=== PATIENT | male | born 1990 | race Caucasian/White ===

== ENCOUNTER 2017-09-12 15:32 | Emergency (ER) | payer SELFPAY ==
[2017-09-12] MEDS ORDERED: NORMAL SALINE 1,000 ML IV ONE (17:19)
[2017-09-12] MEDS ORDERED: ONDANSETRON HCL/PF 2 MG/ML VIAL IV ONE (17:19)
--- NOTE | 2017-09-12 17:19 | ERNOTE ---
[facility] Date of Service: 09/12/17 Presenting Symptoms: dental pain Time Seen by Provider: 09/12/17 16:59 Source: patient, family, RN notes reviewed Exam Limitations: no limitations - Immun/Allergies/Home Medications Immunizations: IMMUNIZATION HX Immunizations Up to Date Yes History of Influenza Vaccine No Hx Pneumococcal Vaccination No Allergies/Adverse Reactions: Allergies Allergy/AdvReac Type Severity Reaction Status Date / Time No Known Allergies Allergy Unverified 09/12/17 16:30 Home Medications: HOME MEDICATIONS Buprenorphine HCl/Naloxone HCl [Suboxone 8 mg-2 mg Sl Film] 8 mg SL HS 09/12/17 [Last Taken Unknown] Dextroamphetamine/Amphetamine [Adderall 30 mg Tablet] 30 mg PO TID 09/12/17 [ Last Taken Unknown] Penicillin V Potassium [Pen-Vee K] 500 mg PO Q8H #30 tab 09/12/17 [Last Taken Unknown] clonazePAM [Klonopin] 1 mg PO PRN 09/12/17 [Last Taken Unknown] - History of Present Illness Narrative: 27 year old male presents to the ED with his girlfriend for dental pain and scrotal pain. He states that he has had bad teeth for some time. He began having pain about 36 hours ago and noticed swelling in his jaw today on the left lower side. He is also having chills and nausea. His scrotal pain has been intermittent for several weeks but was worse last night. It is not as bad today. He does a lot of heavy lifting at work. He denies dysuria. The pain is localized to the right side of the scrotum. Prearrival Treatment: Present: no prearrival treatment Prior Treament: Denies: recently seen, similar symptoms before Review of Systems - Review of Systems Constitutional: Present: fever, chills, malaise EYE: Absent: eye pain, vision changes ENT: Absent: ear pain, sore throat Respiratory: Absent: shortness of breath, cough Cardiology: Present: no symptoms reported Gastrointestinal/Abdominal: Present: nausea. Absent: vomiting, diarrhea, abdominal pain Genitourinary: Present: pain. Absent: dysuria, hematuria, decreased urinary output, discharge Musculoskeletal: Absent: back pain, joint pain Skin: Present: lumps. Absent: rash, lesions, change in color Neurological: Absent: headache, dizziness/light-headedness Endocrine: Present: no symptoms reported Hematologic/Lymphatic: Present: no symptoms reported Psych: Present: anxiety. Absent: depressed - Patient's Past Medical History Patient History - Medical: Anxiety, Depression, Other - Drug abuse Patient History - Cardiac/Respiratory: No pertinent hx Patient History - Cancer: No Hx of Cancer Patient History - Surgical Procedures: T & A Patient History - Other: None - Social History Living Situations: significant other Abuse History: Hx of Substance Use, Hx -Substance Use Tx Psych History: Hx of Anxiety, Hx of Depression Smoking Status: Current every day smoker Have you smoked in the past 12 months: Yes Do you dip or chew tobacco: No Alcohol Use: none Drug Use: none - Immunizations Immunizations Up to Date: Yes Hx Pneumococcal Vaccination: No History of Influenza Vaccine: No Physical Exam - Physical Exam General Appearance: Present: alert, mild distress, anxious, thin Head Exam: Present: swelling - Left mandible, tenderness - Left mandible Eye Exam: Normal inspection: bilateral Ears, Nose, Throat: Present: other - poor dentition. Absent: abnormal TM (R), abnormal TM (L), nasal congestion, pharyngeal erythema, dry mucous membranes Neck: Present: supple, lymphadenopathy (L). Absent: lymphadenopathy (R) Respiratory: Present: no respiratory distress, normal breath sounds, no accessory muscle use, lungs clear Cardiovascular/Chest: Present: regular rate, rhythm, no murmur Gastrointestinal/Abdominal: Present: normal bowel sounds, nontender, nondistended, soft Male Genitals Exam: Present: hernia mass - Right, inguinal, inguinal tenderness - Right, scrotum tenderness (R). Absent: erythema, lesions, scrotum tenderness (L), testicular tenderness (R), testicular tenderness (L) Back Exam: Present: normal inspection, no CVA tenderness Extremity Exam: Present: normal inspection, normal range of motion, no edema Neurological Exam: Present: alert, oriented, normal mood/affect, no motor/ sensory deficits Skin Exam: Present: normal color, warm/dry ED Progress - Results and Orders Patient's Lab Results:: I have reviewed the patient's lab results. - Vital Signs Patient's Vital Signs:: I have reviewed the patient's vital signs. Vital Signs: Vital Signs 09/12/17 16:22 Temperature 37.3 C Pulse Rate 97 Respiratory 17 Rate Blood Pressure 127/68 O2 Sat by Pulse 100 Oximetry - Progress/Reassessment Chief Complaint: Dental Problem Progress:: Improved Plan - Plan Plan: To see dentist [facility] for dental abscess. IV clindamycin given here and started on PenVK. Patient refuses all pain meds, even Tylenol, d/t his prior drug problem. Discussed treatment of hernia and that any surgical procedure would be elective at this point, but he needs to f/u promptly if pain suddenly becomes worse. Departure Clinical Impression: Dental abscess Inguinal hernia Qualifiers: Obstruction and gangrene presence: without obstruction or gangrene Laterality: unilateral Recurrence: non-recurrent Qualified Code(s): K40.90 - Unilateral inguinal hernia, without obstruction or gangrene, not specified as recurrent - Departure Disposition: Home Follow Up Needed Condition: Stable Instructions: Dental Abscess, [id number], Hernia, Adult, [id number] Additional Instructions: Tylenol and/or ibuprofen for pain See a dentist [facility] Follow up for hernia as needed with general surgery Referrals: Alyssa Quiroz MD [Staff Physician] - Prescriptions: Penicillin V Potassium [Pen-Vee K] 500 mg PO Q8H #30 tab
[2017-09-12] MEDS ORDERED: ONDANSETRON HCL/PF 2 MG/ML VIAL ONE ×2 (17:28→17:39)
[2017-09-12 17:32] LABS: Hematocrit 38.9 % (42.0-52.0); Hemoglobin 13.9 gm/dL (13.5-18.0); Mean Cell Volume 85.3 fl (78-100); Mean Corpuscular Hemoglobin 30.5 pg (27-31); Mean Corpuscular Hgb Conc 35.7 g/dl (32-36); Mean Platelet Volume 8.6 fl (6.0-9.5); Neutrophil # 8.3 K/mm3 (1.3-6.0); Neutrophil % 66.6 % (42-75.0); Platelet Count 285 K/mm3 (150-450); Red Blood Count 4.56 M/mm3 (4.7-6.0); Red Cell Distribution Width 12.2 % (11.5-14.0); White Blood Count 12.5 K/mm3 (4.0-10.5)
[2017-09-12 17:44] LABS: Albumin * 4.1 gm/dl (3.4-5.0); Anion Gap 13.3 mmol/L (6.8-13.8); BUN/Creatinine Ratio 18.3 (9.0-21.6); Bilirubin, Total 0.5 mg/dL (0.0-1.1); Ca. Corrected For Albumin 8.5 mg/dL (8.4-10.2); Calcium * 8.9 mg/dL (7.9-10.9); Carbon Dioxide 27.4 mmol/L (24-32.6); Potassium 3.7 mmol/L (3.4-4.6); Total Protein 7.7 gm/dL (6.2-8.2)
[2017-09-12 17:49] LABS: Urine Appearance Clear; Urine Bacteria None Seen; Urine Bilirubin Negative (NEGATIVE); Urine Blood Negative /ul (NEGATIVE); Urine Color Yellow; Urine Ketone Negative (NEGATIVE); Urine Nitrite Negative (NEGATIVE); Urine Protein Negative (NEGATIVE); Urine RBC None Seen /hpf (0-5); Urine Urobilinogen Normal (NORMAL); Urine WBC None Seen /hpf (0-5); Urine pH 6.5 pH (5.0-7.0)
[2017-09-12] MEDS ORDERED: CLINDAMYCIN PHOSPHATE 150 MG/ML VIAL IV ONE (18:45)
[2017-09-12] MEDS ORDERED: CLINDAMYCIN PHOSPHATE 600 MG in DEXTROSE 5 % IN WATER 100 ML IV ONE ×2 (19:30)
[2017-09-12 19:58] VITALS: BP 116/74
== END 2017-09-12 20:00 | disposition home or self-care (01) ==
LOC: ER 15:32
DX: K04.7 Periapical abscess without sinus (principal); K40.90 Unilateral inguinal hernia, without obstruction or gangrene, not specified as recurrent; F17.200 Nicotine dependence, unspecified, uncomplicated; F41.9 Anxiety disorder, unspecified
CPT/HCPCS: 36415; 80053; 81001; 85025; 87491; 87591; 96365; 96375; 99284; J2405